=== PATIENT | female | born 1970 | race Hispanic/Latino ===

== ENCOUNTER → 2024-03-12 14:51 | Outpatient (CLI) | payer OTHER, MEDICAID, SELFPAY ==
--- NOTE | 2024-03-20 11:03 | DIET.OUTPTC ---
Dietary Outpatient Consultation Note Consultation Date: 03/12/2024 Assessment: 53 y F referred to dietitian for hyperlipidemia. Anna comes reporting her TG and cholesterol levels were more elevated than usual. Labs not included in referral, requested. Pt reports cholesterol in the 300s and TG in the 400s on most recent assessment. Interested in herbal/supplement options over medication. Note some termite control servicer taste changes after having covid ~2 yrs ago. Diet recall: No breakfast L-doyle, non-starchy veg, and rice soup w/ 2 cups of beans and 2 cups of rice D- 7p- bhakti, meat (either fish, red meat/pork, or poultry), nonstarchy veg, beans, 2 cups rice 2-3 apples per day Fish fried in at least 1/4 c oil estimated 20-24 servings CHO daily *Note- pt's rice and quantity of rice and beans at meal is important to her, is not ready for change on this yet. Counseled based on stage of change. Alcohol intake is socially 1-2 drinks per month No sugary drinks- only adds fresh [place] juice to water No activity. Pt needs social support to complete activity i.e. company on walks Ht: 5 ft 1 in Wt: 66.7 kg BMI: 27.78 UBW: - Nutrition Diagnosis: Excessive carbohydrate intake aeb large portion size of CHO aeb diet recall Physical inactivity r/t stages of change aeb reported she stopped exercising Excessive fat intake r/t frying fish and higher fat meat selections aeb diet recall Interventions: -Educ on pathophysio and reasoning behind the below interventions -Discussed ways to reduce elevated lipids- reducing CHO at meal, even by 1/2 cup rice (pt not ready for this change-counseled based on stage of change), increasing activity, ex of moderate intense activity, reducing saturated fats, using less oil to meza foods or alternative cooking methods, supplements per pt interest of plant stanols/sterols but encouraged to discuss w/ PCP first, and continuing with lots of fiber sources Goals: pt driven/oriented -1 hr of exercise 3x/wk - walk with kids or yoga/exercise video at moderate intensity level -use air fryer with 1tbsp olive or canola oil rubbed on fish over frying -choose a leaner red meat from handout/reduce red meat to <2x/wk EER: 13-16 servings CHO based on MSJ xPA for predictive activity based on goal to provide 50% macro distribution Monitoring/Evaluations: f/u up 6-12 wks Electronically Signed by: Anali Marques 03/20/24 11:03 Clinical Dietitian [address] [id number]
== END ==
PROVIDERS: PCP Nurse Practitioner Family; Referring Provider Nurse Practitioner Family
DX: E78.5 Hyperlipidemia, unspecified (principal); Z71.3 Dietary counseling and surveillance; Z68.27 Body mass index [BMI] 27.0-27.9, adult
CPT/HCPCS: 97802